=== PATIENT | male | born 1975 | race Caucasian/White ===

== ENCOUNTER 2020-06-07 15:15 | Outpatient (CLI) | payer OTHER, SELFPAY | END 2020-06-07 15:16 | disposition home or self-care (01) | LOC: ANHCOVIDVC 15:15 | PROVIDERS: PCP Emergency Medicine | DX: Z23 Encounter for immunization (principal) | CPT/HCPCS: 0001A; 91300 ==

== ENCOUNTER 2020-07-10 09:08 | Outpatient (CLI) | payer OTHER, SELFPAY | END 2020-07-10 09:09 | disposition home or self-care (01) | LOC: ANHCOVIDVC 09:08 | PROVIDERS: PCP Emergency Medicine | DX: Z23 Encounter for immunization (principal) | CPT/HCPCS: 0002A; 91300 ==